=== PATIENT | male | born 1975 | race African-American/Black ===

== ENCOUNTER 2023-12-23 16:17 | Inpatient (IN) | payer OTHER ==
[2023-12-23 17:41] VITALS: BMI 25.3
[2023-12-23] MEDS ORDERED: ACETAMINOPHEN 325 MG TABLET (FP) PO PRN (19:30)
[2023-12-23] MEDS ORDERED: NALOXONE HCL (KLOXXADO) 8 MG SPRAY NS PRN (19:30)
[2023-12-23] MEDS ORDERED: ONDANSETRON *ODT* 4 MG TABLET SL PRN (19:30)
[2023-12-23] MEDS ORDERED: MAGNESIUM HYDROX 2400MG/30ML ORAL SUSPENSION 30 ML CUP PO PRN (19:30)
[2023-12-23] MEDS ORDERED: guaiFENesin 600 MG TABLET.ER (FP) PO PRN (19:30)
[2023-12-23] MEDS ORDERED: POLYETHYLENE GLYCOL (HEALTHYLAX) 3350 17 GM PACKET PO PRN (19:30)
[2023-12-23] MEDS ORDERED: BENZOCAINE/MENTHOL (CHLORASEPTIC ) LOZENGE MM PRN (19:30)
[2023-12-23] MEDS ORDERED: hydrOXYzine PAMOATE 25 MG CAPSULE (FP) PO PRN (19:30)
[2023-12-23] MEDS ORDERED: BENZONATATE 200 MG CAPSULE PO PRN (19:30)
[2023-12-23] MEDS ORDERED: NALOXONE HCL 0.4 MG/ML VIAL IM PRN (19:30)
[2023-12-23] MEDS ORDERED: IBUPROFEN 400 MG TABLET (FP) PO PRN (19:30)
[2023-12-23] MEDS ORDERED: BISMUTH SUBSALICYLATE 524 MG/30 ML PO PRN (19:30)
[2023-12-23] MEDS ORDERED: MAG HYDROX/AL HYDROX/SIMETH 30 ML UNIT-DOSE CUP PO PRN (19:30)
[2023-12-23] MEDS ORDERED: LOPERAMIDE HCL 2 MG CAPSULE PO PRN (19:30)
[2023-12-23] MEDS ORDERED: P-EPHED 60MG/TRIPROLIDI 2.5MG TABLET PO PRN (19:30)
[2023-12-23] MEDS ORDERED: DICYCLOMINE HCL 10 MG CAPSULE PO PRN (19:30)
[2023-12-23] MEDS ORDERED: IBUPROFEN 600 MG TABLET (FP) PO PRN (19:30)
[2023-12-23] MEDS: NICOTINE POLACRILEX 2 MG LOZENGE BC PRN (21:44)
[2023-12-23] MEDS: THIAMINE HCL 100 MG TABLET (FP) PO SCH (22:29)
[2023-12-23] MEDS: MELATONIN 5 MG TABLETS PO SCH (22:29)
[2023-12-24] MEDS: PRENATAL VITAMINS W/ FOLIC ACID TABLET (FP) PO SCH (10:36)
[2023-12-24] MEDS: NICOTINE 14 MG/24 HOURS TOPICAL PATCH TD SCH (10:37)
[2023-12-24 14:57] LABS: CHLORIDE 103 mmol/L (98-107); POTASSIUM 4.5 mmol/L (3.5-5.1); SODIUM 139 mmol/L (136-145)
[2023-12-24 14:59] LABS: ANION GAP 9 mmol/L (4-13); CALCIUM 9.5 mg/dL (8.5-10.1); CO2 26 mmol/L (21-32)
[2023-12-24 15:00] LABS: ALBUMIN 3.8 g/dl (3.4-5.0); BLOOD UREA NITROGEN 8.8 mg/dL (7-18); GLUCOSE,RANDOM 110 mg/dL (74-106)
[2023-12-24 15:02] LABS: HEMATOCRIT 42.3 % (35.4-49); HEMOGLOBIN 14.2 GM/dL (11.7-16.9); MCH 30.3 pg (25.7-33.7); MCHC 33.7 g/dl (32.0-35.9); MEAN CELL VOLUME 90.1 fl (80-96); MEAN PLT VOLUME 6.8 fl (7.5-11.1); PLATELET COUNT 267 10^3/uL (134-434); RDW 14.9 % (11.9-15.9); WHITE BLOOD COUNT 5.8 K/mm3 (4.0-10.0)
[2023-12-24 15:03] LABS: CREATININE 0.8 mg/dL (0.55-1.3); SGOT/AST 22 U/L (15-37); SGPT/ALT 23 U/L (13-61)
[2023-12-24 15:04] LABS: BILIRUBIN,TOTAL 0.8 mg/dL (0.2-1)
[2023-12-24 15:05] LABS: ALK PHOS 73 U/L (45-117); TOT PROT 6.8 g/dl (6.4-8.2)
[2023-12-24] MEDS: traZODone HCL 50 MG TABLET (FP) PO SCH (22:52)
[2023-12-24] MEDS: risperiDONE 2 MG TABLET PO SCH (22:52)
[2023-12-24] MEDS: lamoTRIgine 100 MG TABLET PO SCH (22:52)
[2023-12-25] MEDS: METHOCARBAMOL 500 MG TABLET PO PRN (05:20)
[2023-12-25] MEDS: NICOTINE 21 MG/24 HOURS TOPICAL PATCH TD SCH (09:08)
[2023-12-25] MEDS: SERTRALINE HCL 50 MG TABLET (FP) PO SCH (09:08)
[2023-12-25] MEDS: diazePAM 5 MG TABLET PO SCH (13:13)
[2023-12-26] MEDS: diazePAM 5 MG TABLET PO SCH (05:28)
[2023-12-26 06:36] VITALS: RESP 16
[2023-12-26 13:12] VITALS: BP 139/79; PULSE 90; TEMP 97.5
[2023-12-26] MEDS ORDERED: traZODone HCL 50 MG TABLET (FP) PO SCH (22:00)
[2023-12-27] MEDS ORDERED: diazePAM 5 MG TABLET PO ONE (06:00)
== END 2023-12-26 13:59 | disposition home or self-care (01) | DRG 897 ==
LOC: YASAS 16:17 → Y6N 20:11 → UNDOADMIN 20:11 → UNDODISIN 12-26 13:59
PROVIDERS: ADMIT Allergy & Immunology; ATTEND Surgery
PROC: HZ2ZZZZ Detoxification Services for Substance Abuse Treatment (ICD-10-PCS; principal; 2023-12-23)
DX: F10.230 Alcohol dependence with withdrawal, uncomplicated (principal); F12.20 Cannabis dependence, uncomplicated; F17.210 Nicotine dependence, cigarettes, uncomplicated; F25.9 Schizoaffective disorder, unspecified; G47.00 Insomnia, unspecified
CPT/HCPCS: 36415; 80053; 80305; 80307; 85027; 86780; 93005; 93010